=== PATIENT | male | born 1940 | race Caucasian/White ===

== ENCOUNTER 2018-10-12 22:54 | Emergency (ER) | payer MEDICARE ==
[2018-10-12 23:40] LABS: #Basophils 0.1 thou/uL (0.0-0.2); #Eosinphils 0.3 thou/uL (0.0-0.7); #Lymphocytes 1.8 thou/uL (1.20-3.40); #Monocytes 1.1 thou/uL (0.11-0.59); #Neutrophils 10.6 thou/uL (1.40-6.50); %Basophils 0.7 % (0.0-1.0); %Eosinophils 2.1 % (0.0-10.0); %Lymphocytes 13.1 % (21.0-51.0); %Monocytes 7.7 % (0.0-10.0); %Neutrophils 76.4 % (42.0-75.0); Hemoglobin 14.4 g/dL (14.0-18.0); Mean Corpuscular HGB CONC 32.1 g/dL (32.0-36.0); Mean Corpuscular Volume 90.1 fL (78.0-98.0); Mean Platelet Volume 9.9 fL (7.4-10.4); Platelet Count 194 thou/uL (130-400); Red Blood Cell (RBC) Count 4.97 mill/uL (4.70-6.10); White Blood Cell (WBC) Count 13.9 thou/uL (4.8-10.8)
--- NOTE | 2018-10-12 23:49 | RAD ---
PORTABLE AP CHEST X-RAY 10/12/18 HISTORY: Chest, neck, and upper abdominal pain for three hours. COMPARISON: None available. FINDINGS: The cardiac silhouette and pulmonary vasculature are within normal limits. Lungs are clear. Vascular calcifications are seen in the thoracic aorta. Osseous structures have a normal appearance. IMPRESSION: No acute cardiopulmonary process. POS: [facility]
[2018-10-13] LABS: ALT (SGPT) 21 U/L (8-55); AST (SGOT) 19 U/L (5-34); Alkaline Phosphatase 52 U/L (40-150); Anion Gap 16 mmol/L (10-20); BUN (Urea Nitrogen) 18 mg/dL (8.4-25.7); Bilirubin, Total 0.4 mg/dL (0.2-1.2); Calc. Creatinine Clearance 0 mL/min (70-130); Calcium 9.6 mg/dL (7.8-10.44); Carbon Dioxide 25 mmol/L (23-31); Chloride 101 mmol/L (98-107); Estimated GFR-MDRD 79; Globulin 3.3 g/dL (2.4-3.5); Glucose 120 mg/dL (83-110); Lipase 36 U/L (8-78); Potassium 4.4 mmol/L (3.5-5.1); Protein, Total 7.3 g/dL (5.8-8.1); Sodium 138 mmol/L (136-145)
[2018-10-13] MEDS ORDERED: Lidocaine Viscous Sol 2% 15 ml UD Cup ONE (00:14)
[2018-10-13] MEDS ORDERED: Mag-Al Plus 1200 MG/1200 MG/120 MG/30 ML UDCUP ONE (00:14)
== END 2018-10-13 01:10 | disposition home or self-care (01) ==
LOC: MADERS 22:54
DX: R07.9 Chest pain, unspecified (principal); M54.2 Cervicalgia; I49.9 Cardiac arrhythmia, unspecified; I48.91 Unspecified atrial fibrillation; E11.9 Type 2 diabetes mellitus without complications; E78.5 Hyperlipidemia, unspecified; I10 Essential (primary) hypertension; Z79.4 Long term (current) use of insulin; Z79.899 Other long term (current) drug therapy
CPT/HCPCS: 71045; 80053; 83690; 83880; 84484; 85025; 85379; 93005